=== PATIENT | male | born 1980 | race Caucasian/White ===

== ENCOUNTER 2022-04-05 21:13 | Emergency (ER) | payer OTHER ==
[~2022-04-05] VITALS: Ht 182.9 cm; Wt 90.7 kg
--- NOTE | 2022-04-05 21:40 | NUR ---
[id number]. FOUND LEANING OVER ESCALATOR AT [facility] [place]. ON HOLD FOR DTS. PT DOES NOT TALK. DENIED SI. PLACED ON BED, ASLEEP NOT RESPONDING TO QUESTION- VERBAL STIMULI, BREATHING EVEN AND UNLABORED.
--- NOTE | 2022-04-05 21:44 | NUR ---
LAB AT BEDSIDE
--- NOTE | 2022-04-05 21:44 | NUR ---
COVID SWAB COLLECTED AND SENT TO LAB
--- NOTE | 2022-04-05 21:57 | NUR ---
PATIENT IS COOPERATIVE WITH FLORAL ARRANGER AND SECURITY FOLLOWS COMMAND, RESPONDS TO VERBAL STIMULI BY SIGN LANGUAGE.
--- NOTE | 2022-04-05 22:33 | NUR ---
URINE SAMPLE COLLECTED
[2022-04-05 22:41] LABS: BASOPHILS % (AUTO) 0.1 % (0.0-2.0); EOSINOPHILS % (AUTO) 0.3 % (0.0-6.0); HEMATOCRIT 45 % (39-51); HEMOGLOBIN 14.6 g/dL (13.5-17.5); LYMPHOCYTES # (AUTO) 1.4 K/uL (0.8-4.8); LYMPHOCYTES % (AUTO) 19.8 % (20.0-44.0); MEAN CORPUSCULAR HGB CONC 33 g/dl (31.0-36.0); MEAN CORPUSCULAR VOLUME 89 fL (80-96); MONOCYTES # (AUTO) 0.7 K/uL (0.1-1.30); MONOCYTES % (AUTO) 9.7 % (2.0-12.0); NEUTROPHILS # (AUTO) 4.9 K/uL (1.8-8.9); NEUTROPHILS % (AUTO) 70.1 % (43.0-81.0); PLATELET COUNT (AUTO) 193 K/uL (150-450); RED BLOOD CELL COUNT(AUTO) 5.01 MIL/uL (4.5-6.0); WHITE BLOOD COUNT (AUTO) 7.1 K/uL (4.3-11.0)
[2022-04-05 23:00] LABS: BILIRUBIN,URINE NEGATIVE (NEGATIVE); COLOR,URINE YELLOW (YELLOW); LEUKOCYTE ESTERASE ,URINE NEGATIVE (NEGATIVE); NITRITE, URINE NEGATIVE (NEGATIVE); PH,URINE 6.5 (5.0-8.0); PROTEIN,URINE 30 mg/dl (NEGATIVE); UGLUCOSE NEGATIVE (NEGATIVE); UROBILINOGEN,URINE 0.2 EU/dL (0.2)
[2022-04-05 23:18] LABS: BACTERIA,URINE None seen /HPF (None Seen); MUCUS,URINE Moderate /LPF (None Seen); RBC,URINE 0-2 /HPF (0-2); SQUAMOUS EPITHELIAL CELL,UR Rare /HPF (None Seen); WBC,URINE 0-2 /HPF (0-3)
[2022-04-05 23:22] LABS: ALANINE AMINOTRANSFERASE 33 U/L (12-78); ALBUMIN 4.3 g/dL (3.4-5.0); ALKALINE PHOSPHATASE 85 U/L (46-116); ASPARTATE AMINOTRANSFERASE 28 U/L (15-37); BILIRUBIN,DIRECT 0.2 mg/dL (0.0-0.2); BILIRUBIN,TOTAL 0.6 mg/dL (0.2-1.0); CALCIUM, SERUM 9.7 mg/dL (8.5-10.1); CARBON DIOXIDE 31 mmol/L (21-32); CHLORIDE 105 mmol/L (98-107); CREATININE 1.4 mg/dL (0.6-1.3); GLUCOSE 111 mg/dL (74-106); SODIUM SERUM 143 mmol/L (136-145); TOTAL PROTEIN, SERUM 8.7 g/dL (6.4-8.2); UREA NITROGEN, BLOOD 16 mg/dL (7-18)
[2022-04-05 23:26] LABS: ACETAMINOPHEN 0 ug/ml (10-30); ALCOHOL, BLOOD < 3 mg/dL (0-0)
[2022-04-06] MEDS ORDERED: OLANZAPINE 10 MG VIAL IM ONE ×4 (02:13→17:30)
--- NOTE | 2022-04-06 08:17 | NUR ---
Sleeping, Respirations even/unlabored
--- NOTE | 2022-04-06 10:00 | NUR ---
Awake. Refusing to give any updated information/medical information at this time. Breakfast given
--- NOTE | 2022-04-06 13:02 | NUR ---
Status quo. NO psychiatric beds available at this time
--- NOTE | 2022-04-06 17:31 | NUR ---
Pt starting to get anxious/agitated- Dr Iniguez notified w/orders for zyprexa. Given as indicated. Sitter at direct line of sight for safety
--- NOTE | 2022-04-06 19:42 | NUR ---
PT IS SLEEPING, EASILY AROUSABLE. DENIES ANY PAIN AT THIS TIME. CONNECTED TO MONITOR. SITTER WITHIN SIGHT. WILL CONTINUE TO MONITOR.
--- NOTE | 2022-04-06 21:01 | NUR ---
DR DOMINGUEZ AT BEDSIDE. [facility] ORDER FOR ZOLOFT 50MG PO X1
[2022-04-06] MEDS ORDERED: SERTRALINE HCL 50 MG TABLET PO ONE (21:30)
--- NOTE | 2022-04-07 08:00 | NUR ---
Awake, Alert. Uncooperative and refusing to give any information at this time. Awaiting psych placement
--- NOTE | 2022-04-07 13:26 | NUR ---
ASSUMED CARE. PT AWAKE, REFUSING TO SAY HIS NAME. I ASKED WHERE HE IS RIGHT NOW " YES, THE NAME ON YOUR JACKET ". I'M WEARING [facility] JACKET. I ASKED THE DATE RIGHT NOW, " I DON'T WANT TO SAY ANY NUMBERS RIGHT NOW ". RR EVEN & UNLABORED. WILL CONT TO MONITOR. PT REFUSED TO CHECK HIS VITAL SIGNS.
--- NOTE | 2022-04-07 17:00 | NUR ---
PT AWAKE. DENIES ANY DISCOMFORT AT THIS TIME. WILL CONT TO MONITOR.
--- NOTE | 2022-04-07 17:43 | NUR ---
Dinner served- Ate 100%
--- NOTE | 2022-04-07 19:52 | NUR ---
PT IS AWAKE , WATCHING TV. REFUSES TO ANSWER ANY QUESTIONS. PT DOES NOT SEEM TO BE IN DISTRESS. CONNECTED TO MONITOR. SITTER WITHIN SIGHT. WILL CONTINUE TO MONITOR.
--- NOTE | 2022-04-07 21:43 | NUR ---
DR DOMINGUEZ AT BEDSIDE
[2022-04-08] MEDS ORDERED: SERTRALINE HCL 50 MG TABLET PO SCH (09:30)
--- NOTE | 2022-04-08 14:09 | NUR ---
SS consult requested for suicidal ideation and placement. Pt. is a 41-year-old male who was admitted on 04/05/2022 due to behavioral/overdose. Upon SS consult, pt. presents with a depressed mood and congruent affect. Pt. presents with an illogical thought process. Pt. does not provide appropriate eye contact. Pt. appeared to have difficulty processing what the urban and regional planner was communicating with the pt. Pt. closed his eyes throughout the interview. regional planner asked the pt. if they would be willing to go to [facility]. regional planner explained the facility to the patient. Pt. closed his eyes and did not respond. Discharge planer will remain available as needed.
--- NOTE | 2022-04-08 14:39 | NUR ---
DC Planning: [facility]NA faxed clinicals to [facility] fax:[phone] tel:[phone] and pt. was clinically accepted but pending bed availability. However, patient's hold will tonight. SWAPNA discussed case with SS Director Marielle Agustin who stated she will have commercial finance analyst, Niko Montero [phone] will come and see the pt. soon to determine if pt. needs to continue treatment.
--- NOTE | 2022-04-08 16:43 | NUR ---
SWAPNA faxed clinicals to [facility] TEL:[phone] fax:[phone] for placement at [facility] [[facility] [place] [address]] for voluntary psychiatric treatment as requested by stemhole borer,
[2022-04-08 20:22] VITALS: BP 145/90
--- NOTE | 2022-04-08 20:22 | NUR ---
Patient eloped from facility. ER MD notified.
== END 2022-04-08 20:22 | disposition left against medical advice (07) ==
LOC: ER 21:51 → EDBD 21:51 → ER 04-08 20:22
DX: R45.851 Suicidal ideations (principal); F29 Unspecified psychosis not due to a substance or known physiological condition; F32.A Depression, unspecified; Z20.822 Contact with and (suspected) exposure to COVID-19
CPT/HCPCS: 99285; 85025; 80048; 80076; 81001; 36415; 87426; 80143; 80320; 80307; 96372 ×2; J7030; C9803; J3490 ×2; G0480